=== PATIENT | female | born 1985 | race Caucasian/White ===

== ENCOUNTER 2024-03-02 07:02 | Inpatient (IN) | payer OTHER ==
[2024-03-02 07:44] VITALS: BMI 35.4
[2024-03-02] MEDS ORDERED: Methylergonovine 0.2 MG/ML VIAL IM PRN (09:11)
[2024-03-02] MEDS ORDERED: Misoprostol 200 MCG TAB PR PRN (09:11)
[2024-03-02] MEDS ORDERED: hydrALAZINE 20 MG/ML VIAL SLOW IVP PRN ×2 (09:11→14:54)
[2024-03-02] MEDS ORDERED: Ondansetron PF 4 MG/2 ML Vial IVP PRN ×6 (09:11→18:20)
[2024-03-02] MEDS ORDERED: Promethazine HCl 25 MG/ML VIAL IM PRN ×3 (09:11→16:16)
[2024-03-02] MEDS ORDERED: Tranexamic Acid 1,000 MG/10 ML VIAL IVP PRN (09:11)
[2024-03-02] MEDS ORDERED: Famotidine/PF 20 mg/2ml Vial SLOW IVP PRN (09:11)
[2024-03-02] MEDS ORDERED: Diphenoxylate HCl/Atropine Tablet PO PRN ×2 (09:11)
[2024-03-02] MEDS ORDERED: Bicitra 30 ML UDCUP PO PRN (09:11)
[2024-03-02] MEDS ORDERED: Carboprost 250 MCG/ML AMP IM PRN (09:11)
[2024-03-02] MEDS ORDERED: Oxytocin 30 units/NS 500 ML 500 ML IV SCH (09:15)
[2024-03-02] MEDS ORDERED: Azithromycin 500 MG in Sodium Chloride 0.9% 250 ML 250 ML IVPB SCH (09:15)
[2024-03-02] MEDS ORDERED: Lactated Ringer's 1,000 ML IV SCH (09:15)
[2024-03-02] MEDS ORDERED: Moisturizing Cream (Eucerin) 113 GM JAR TOP PRN ×2 (09:34→16:16)
[2024-03-02] MEDS ORDERED: Naloxone HCl 0.4 mg/ml Vial IV PRN ×2 (09:34→16:16)
[2024-03-02] MEDS ORDERED: Ketorolac Tromethamine 30 MG (1 mL) VIAL IVP PRN (09:34)
[2024-03-02] MEDS ORDERED: fentaNYL 50 mcg/mL 1 mL Vial SLOW IVP PRN ×3 (09:34→18:20)
[2024-03-02] MEDS ORDERED: Meperidine HCl/PF 25 MG (1 mL) VIAL SLOW IVP PRN ×3 (09:34→18:20)
[2024-03-02] MEDS ORDERED: Naloxone HCl 0.4 mg/ml Vial IVP PRN ×4 (09:34→16:16)
[2024-03-02] MEDS ORDERED: diphenhydrAMINE 50 MG/ML VIAL IVP PRN ×2 (09:34→16:16)
[2024-03-02] MEDS ORDERED: HYDROmorphone 0.5 MG/0.5 ML SYRINGE SLOW IVP PRN ×2 (09:34→18:20)
[2024-03-02] MEDS ORDERED: Communication Order-Pharmacy FS SCH ×2 (09:45→10:00)
[2024-03-02 09:58] LABS: Hematocrit 30.8 % (34.9-44.5); Hemoglobin 9.7 g/dL (12.0-15.5); Mean Corpuscular HGB CONC 31.5 g/dL (32.0-36.0); Mean Corpuscular Hemoglobin 26.1 pg (27.0-33.0); Mean Corpuscular Volume 82.8 fL (81.6-98.3); Mean Platelet Volume 11.4 fL (7.4-10.4); Platelet Count 150 10x3/uL (150-450); RBC Distribution Width 14.3 % (11.5-14.5); Red Blood Cell (RBC) Count 3.72 10x6/uL (3.90-5.03); White Blood Cell (WBC) Count 8.5 10x3/uL (3.5-10.5)
[2024-03-02] MEDS: CEFAZOLIN 2 GM in Sodium Chloride 0.9% 100 ML IVPB SCH (10:00)
[2024-03-02] MEDS: Azithromycin 500 MG VIAL ONE (10:01)
[2024-03-02 10:27] LABS: Syphilis Antibody Nonreactive (Nonreactive); Syphilis Antibody Index 0.07 S/CO (<1.00 Non-Reactive)
[2024-03-02 10:28] LABS: HBsAg Index 0.23 S/CO (0-0.99); Hep B Surf Ag - L&D Non-Reactive S/CO (NonReactive)
[2024-03-02] MEDS: Ketorolac Tromethamine 30 MG (1 mL) VIAL IVP SCH (12:53)
[2024-03-02] MEDS ORDERED: Lanolin Ointment 7 GM TUBE TOP PRN (14:54)
[2024-03-02] MEDS ORDERED: Boostrix 0.5 ML (Tdap) VIAL (>/=7 yrs of age) IM ONE (14:54)
[2024-03-02] MEDS ORDERED: HYDROcodone/Acetaminophen 5/325 mg Tablet PO PRN ×2 (14:54)
[2024-03-02] MEDS: Phytonadione Neonatal 1 MG/0.5 ML AMP ONE (15:28)
[2024-03-02] MEDS: CEFAZOLIN 2 GM VIAL ONE (15:28)
[2024-03-02] MEDS: Ondansetron PF 4 MG/2 ML Vial ONE (15:28)
[2024-03-02] MEDS: Famotidine/PF 20 mg/2ml Vial ONE ×2 (15:28→15:29)
[2024-03-02] MEDS: Erythromycin Base 0.5% Oint 1 GM TUBE ONE (15:28)
[2024-03-02] MEDS: PHENYLEPHRINE-NS 100 MCG/ML 10 ML SYRINGE ONE (15:29)
[2024-03-02] MEDS: Famotidine/PF 20 mg/2ml Vial SLOW IVP SCH (15:29)
[2024-03-02] MEDS: fentaNYL 50 mcg/mL 1 mL Vial ONE (15:29)
[2024-03-02] MEDS: Morphine PF 10 MG/10 ML VIAL ONE (15:29)
[2024-03-02] MEDS: Oxytocin 10 UNITS/ML VIAL ONE (15:29)
[2024-03-02] MEDS: Hepatitis B Vaccine 10 MCG/0.5 ML SYR ONE (15:29)
[2024-03-02] MEDS ORDERED: Ketorolac Tromethamine 30 MG (1 mL) VIAL IVP SCH ×2 (16:30→18:30)
[2024-03-02] MEDS: Ketorolac Tromethamine 30 MG (1 mL) VIAL IVP PRN (18:18)
[2024-03-02] MEDS ORDERED: Ibuprofen 800 MG TAB PO SCH (19:00)
[2024-03-03] MEDS: HYDROcodone/Acetaminophen 5/325 mg Tablet PO PRN ×2 (04:55→09:19)
[2024-03-03 05:19] LABS: Hematocrit 25.6 % (34.9-44.5); Hemoglobin 8.3 g/dL (12.0-15.5); Mean Corpuscular HGB CONC 32.4 g/dL (32.0-36.0); Mean Corpuscular Hemoglobin 26.9 pg (27.0-33.0); Mean Corpuscular Volume 82.8 fL (81.6-98.3); Mean Platelet Volume 10.9 fL (7.4-10.4); Platelet Count 125 10x3/uL (150-450); RBC Distribution Width 14.6 % (11.5-14.5); Red Blood Cell (RBC) Count 3.09 10x6/uL (3.90-5.03); White Blood Cell (WBC) Count 8.3 10x3/uL (3.5-10.5)
[2024-03-03] MEDS: Escitalopram Oxalate 10 mg Tablet PO SCH (09:19)
[2024-03-03] MEDS: Prenatal Vitamin 1 TAB PO SCH (09:20)
[2024-03-03] MEDS: valACYclovir 500 MG TAB PO SCH (09:25)
[2024-03-03] MEDS: BuPROPion XL 150 MG ER.TAB PO SCH (09:25)
[2024-03-03] MEDS: Ibuprofen 800 MG TAB PO SCH (21:04)
[2024-03-04] MEDS: Ferrous Sulfate 325 MG TAB PO SCH (10:28)
[2024-03-04] MEDS: Simethicone Chewable 80 MG TAB PO PRN (21:18)
[2024-03-05 07:32] LABS: #Basophils 0.04 10x3/uL (0.0-0.2); #Eosinphils 0.47 10x3/uL (0.0-0.5); #Monocytes 0.42 10x3/uL (0.0-1.1); #Neutrophils 5.07 10x3/uL (1.5-8.4); %Basophils 0.5 % (0.0-2.0); %Eosinophils 5.6 % (0.0-6.0); %Lymphocytes 28.1 % (18.0-47.0); %Neutrophils 60.2 % (40.0-75.0); Hematocrit 25.2 % (34.9-44.5); Hemoglobin 7.9 g/dL (12.0-15.5); Mean Corpuscular HGB CONC 31.3 g/dL (32.0-36.0); Mean Corpuscular Hemoglobin 26.2 pg (27.0-33.0); Mean Corpuscular Volume 83.4 fL (81.6-98.3); Mean Platelet Volume 10.2 fL (7.4-10.4); Platelet Count 128 10x3/uL (150-450); Red Blood Cell (RBC) Count 3.02 10x6/uL (3.90-5.03); White Blood Cell (WBC) Count 8.4 10x3/uL (3.5-10.5)
[2024-03-05 07:38] LABS: ALT (SGPT) 18 U/L (8-55); AST (SGOT) 30 U/L (5-34); Albumin 2.4 g/dL (3.5-5.0); Alkaline Phosphatase 127 U/L (40-110); Anion Gap 13 mmol/L (10-20); BUN (Urea Nitrogen) 7 mg/dL (7.0-18.7); Bilirubin, Total 0.2 mg/dL (0.2-1.2); Calc. Creatinine Clearance 188 mL/min (70-130); Calcium 8.3 mg/dL (7.8-10.44); Carbon Dioxide 21 mmol/L (22-29); Chloride 109 mmol/L (98-107); Estimated GFR 113; Globulin 2.6 g/dL (2.4-3.5); Glucose 82 mg/dL (70-105); Potassium 3.5 mmol/L (3.5-5.1); Sodium 139 mmol/L (136-145)
[2024-03-05] MEDS: NIFEdipine XL 30 MG ER.TAB PO SCH ×2 (08:57→16:26)
[2024-03-05 11:51] LABS: Creatinine, Urine 38.62 mg/dL (47-110); Protein, Urine Random Quant Less than 10 mg/dL (1-14)
[2024-03-05 18:40] VITALS: TEMP 98.4
[2024-03-05 18:41] VITALS: BP 144/69
== END 2024-03-05 17:55 | disposition home or self-care (01) | DRG 788 ==
LOC: CSHLD/OP 07:02 → CSHLD 08:04 → CSHPP 13:39
PROVIDERS: ADMIT Obstetrics & Gynecology; ATTEND Obstetrics & Gynecology
PROC: 10D00Z1 Extraction of Products of Conception, Low, Open Approach (ICD-10-PCS; principal; 2024-03-02)
PROC: 3E0334Z Introduction of Serum, Toxoid and Vaccine into Peripheral Vein, Percutaneous Approach (ICD-10-PCS; 2024-03-02)
DX: O42.02 Full-term premature rupture of membranes, onset of labor within 24 hours of rupture (principal); Z3A.38 38 weeks gestation of pregnancy; Z37.0 Single live birth; O99.344 Other mental disorders complicating childbirth; F41.1 Generalized anxiety disorder; Z79.899 Other long term (current) drug therapy; O99.824 Streptococcus B carrier state complicating childbirth; O26.893 Other specified pregnancy related conditions, third trimester; Z67.41 Type O blood, Rh negative; Z79.82 Long term (current) use of aspirin
CPT/HCPCS: 36415; 51702; 80053; 82570; 84156; 85025; 85027; 85461; 86780; 86850; 86900; 86901; 87340; 90384; 96372; 99285; J0456; J1885; J2274; J2405; J2590; J3010; J3490